=== PATIENT | female | born 1965 | race Two or more races ===

== ENCOUNTER 2020-08-31 10:34 | Outpatient (REF) | payer OTHER, SELFPAY ==
[2020-09-01 11:44] LABS: BV Int Neg Control Negative (Negative)
[2020-09-01 11:45] LABS: BV Int Pos Control Positive (Positive)
[2020-09-01 13:26] LABS: C. trachomatis RNA TMA NOT DETECTED (NOT DETECTED); N. gonorrhoeae RNA TMA NOT DETECTED (NOT DETECTED)
== END 2020-08-31 10:35 | disposition home or self-care (01) ==
LOC: HO.LAB 10:34
PROVIDERS: PCP Internal Medicine; Visit Provider Advanced Practice Midwife
DX: Z01.419 Encounter for gynecological examination (general) (routine) without abnormal findings (principal); B37.3 Candidiasis of vulva and vagina; E11.9 Type 2 diabetes mellitus without complications; Z79.899 Other long term (current) drug therapy; Z79.84 Long term (current) use of oral hypoglycemic drugs
CPT/HCPCS: 36415; 87480; 87491; 87510; 87591; 87624; 87660; 88141; 88142

== ENCOUNTER 2020-10-23 15:00 | Outpatient (REF) | payer OTHER, SELFPAY ==
[2020-10-23 17:24] LABS: MANUAL DIFF FLAG NO
[2020-10-23 17:47] LABS: Basophils Percent Auto 0.3 % (0-2); Eosinophils Absolute Auto 0.1 X10*3/uL (0.0-0.4); Eosinophils Percent Auto 1.4 % (0-4); Hematocrit 37.1 % (37-47); Hemoglobin 11.6 g/dl (12.0-16.0); Imm Gran Abs Auto 0.01 X10*3/uL (0.00-0.03); Imm Gran Pct Auto 0.2 % (0.0-0.4); Lymphocytes Absolute Auto 2.3 X10*3/uL (1.2-4.9); Lymphocytes Percent Auto 35.7 % (20-40); Mean Corpuscular HGB Conc 31.3 g/dl (31.0-35.0); Mean Corpuscular Hemoglobin 25.8 pg (27.0-33.0); Mean Corpuscular Volume 82.4 fL (80-98); Mean Platelet Volume 10.4 fL (9.4-12.3); Monocytes Absolute Auto 0.4 X10*3/uL (0.1-1.2); Monocytes Percent Auto 5.5 % (2-11); Neutrophils Absolute Auto 3.7 X10*3/uL (2.0-8.3); Neutrophils Percent Auto 56.9 % (45-73); Platelet Count 287 X10*3/uL (160-400); Red Cell Distribution Width 13.7 % (11.0-16.0); White Blood Count 6.4 X10*3/uL (4.8-10.8)
[2020-10-23 18:19] LABS: Alanine Aminotransferase 11 U/L (0-31); Albumin Level 4.1 g/dL (3.5-5.0); Alkaline Phosphatase 90 U/L (39-117); Anion Gap 15 (12-20); Aspartate Amino Transferase 13 U/L (5-31); Bilirubin Total 0.4 mg/dL (0.0-1.0); Blood Urea Nitrogen 11 mg/dL (9-16); Calcium 9.2 mg/dL (8.4-10.2); Carbon Dioxide 27 mmol/L (22-29); Chloride 104 mmol/L (96-108); Cholesterol 260 mg/dL; Estimated Glomerular Filt Rate > 60; Glucose Fasting 237 mg/dL (60-99); HDL Cholesterol 63 mg/dL; LDL Cholesterol Calculated 158 mg/dl; Potassium 4.5 mmol/L (3.3-5.1); Sodium 141 mmol/L (135-145); Triglycerides 198 mg/dL
[2020-10-24 09:18] LABS: CT PCR NOT DETECTED (Not Detect.); NG PCR NOT DETECTED (Not Detect.)
== END 2020-10-23 15:01 | disposition home or self-care (01) ==
LOC: HO.LAB 15:00
PROVIDERS: PCP Internal Medicine; Visit Provider Advanced Practice Midwife
DX: Z01.419 Encounter for gynecological examination (general) (routine) without abnormal findings (principal); N95.0 Postmenopausal bleeding; E11.9 Type 2 diabetes mellitus without complications; I10 Essential (primary) hypertension; E78.2 Mixed hyperlipidemia; D50.9 Iron deficiency anemia, unspecified; Z88.4 Allergy status to anesthetic agent; Z88.5 Allergy status to narcotic agent; Z90.49 Acquired absence of other specified parts of digestive tract; Z79.84 Long term (current) use of oral hypoglycemic drugs; Z79.899 Other long term (current) drug therapy
CPT/HCPCS: 36415; 58100; 80053; 80061; 85025; 87491; 87591; 88305; 99212

== ENCOUNTER 2020-10-31 11:14 | Outpatient (REF) | payer OTHER, SELFPAY ==
--- NOTE | ~2020-10-31 | US_ITS ---
EXAMINATION: PELVIC ULTRASOUND CLINICAL INFORMATION: Postmenopausal bleeding COMPARISON: None TECHNIQUE: Transabdominal and transvaginal pelvic ultrasound was performed. Transvaginal exam was performed for better visualization of the uterus and ovaries. FINDINGS: The uterus is anteverted and measures 9.2 x 5.1 x 7.1 cm in dimension. Uterine echotexture is a heterogeneous. There are 5 focal uterine lesions suggestive of fibroids measuring 1 x 0.8 x 0.9 cm in the anterior fundus, 1.7 x 1.6 x 1.6 cm in the right cornual region, 1.8 x 1.3 x 1.4 cm in the high posterior uterine body, 1.3 x 1 x 1 cm in the left uterine body and 1.1 x 0.9 x 1 cm in the right uterine fundus. The endometrium is slightly thickened for a postmenopausal patient measuring 0.6 cm. There are nabothian cysts in the cervix. The right ovary is normal-appearing and measures 2.3 x 1.6 x 1.5 cm. The left ovary is not seen. There is no fluid in the pelvis. US/US pelvic complete IMPRESSION: Fibroid uterus. Slightly thickened endometrium measuring 6 mm. Normal-appearing right ovary. Left ovary not seen.
--- NOTE | ~2020-10-31 | US_ITS ---
EXAMINATION: PELVIC ULTRASOUND CLINICAL INFORMATION: Postmenopausal bleeding COMPARISON: None TECHNIQUE: Transabdominal and transvaginal pelvic ultrasound was performed. Transvaginal exam was performed for better visualization of the uterus and ovaries. FINDINGS: The uterus is anteverted and measures 9.2 x 5.1 x 7.1 cm in dimension. Uterine echotexture is a heterogeneous. There are 5 focal uterine lesions suggestive of fibroids measuring 1 x 0.8 x 0.9 cm in the anterior fundus, 1.7 x 1.6 x 1.6 cm in the right cornual region, 1.8 x 1.3 x 1.4 cm in the high posterior uterine body, 1.3 x 1 x 1 cm in the left uterine body and 1.1 x 0.9 x 1 cm in the right uterine fundus. The endometrium is slightly thickened for a postmenopausal patient measuring 0.6 cm. There are nabothian cysts in the cervix. The right ovary is normal-appearing and measures 2.3 x 1.6 x 1.5 cm. The left ovary is not seen. There is no fluid in the pelvis. US/US transvaginal IMPRESSION: Fibroid uterus. Slightly thickened endometrium measuring 6 mm. Normal-appearing right ovary. Left ovary not seen.
== END 2020-10-31 11:15 | disposition home or self-care (01) ==
LOC: HO.US 11:14
PROVIDERS: Visit Provider Advanced Practice Midwife
DX: N95.0 Postmenopausal bleeding (principal)
CPT/HCPCS: 76830; 76856

== ENCOUNTER → 2020-11-14 11:48 | Outpatient (BNVA) | payer OTHER, SELFPAY | PROVIDERS: PCP Internal Medicine; Visit Provider Advanced Practice Midwife ==

== ENCOUNTER → 2020-12-11 13:24 | Outpatient (BNVA) | payer OTHER, SELFPAY | PROVIDERS: PCP Internal Medicine; Visit Provider Obstetrics & Gynecology | DX: N95.0 Postmenopausal bleeding (principal) | CPT/HCPCS: 99212 ==

== ENCOUNTER 2020-12-27 08:17 | Day surgery (SDC) | payer OTHER, SELFPAY ==
--- NOTE | 2020-12-26 09:05 | HO.ANESPROP2 ---
Documented by User: Sophia Sullivan 12/26/20 09:06 HPI - Anesthesia Eval Consult details Narrative: 55yo F for D&C Hysteroscopy, Poss Myosure xarelto for h/o PE PMFSH Active Problems Active Problems: All Active Problems (Updated 12/04/20 @ 08:45 by Vicenta Shah MD) Lumbar pain (Acute) Pre-op examination (Acute) Postmenopausal bleeding (Acute) Well woman exam with routine gynecological exam (Acute) Yeast infection involving the vagina and surrounding area (Acute) Iron deficiency anemia (Acute) Mixed hyperlipidemia (Acute) Essential hypertension (Acute) Diabetes mellitus (Acute) BPV (benign positional vertigo) (Acute) Past Medical History Medical History Diabetes mellitus Essential hypertension History of pulmonary embolism Iron deficiency anemia Lumbar pain Mixed hyperlipidemia Pre-op examination Family History Family History Father Hypertension Mother Hypertension CVD (cardiovascular disease) Diabetes Maternal Aunt Lung cancer Surgical History Surgical History History of laparoscopic cholecystectomy History of phacoemulsification of cataract with intraocular lens implantation History of tubal ligation Hx of eye surgery Social History Social History Alcohol intake: never Smoking Status: Never smoker Are you DNR?: No Advance Directives: No Advance Directives Information Provided: Yes Gender identity: female Meds Allergies Allergy/AdvReac Type Severity Reaction Status Date / Time acetaminophen [Percocet] Allergy Intermediate tachycardia Verified 12/27/20 08:30 oxycodone [Percocet] Allergy Intermediate tachycardia Verified 12/27/20 08:30 Home Medications Medication Instructions Recorded Confirmed Last Taken Type ferrous sulfate 324 mg (65 mg 324 mg PO DAILY 05/24/20 12/20/20 Unknown History iron) tablet,delayed release gabapentin 400 mg capsule 400 mg PO TID 05/24/20 12/20/20 Unknown History ketorolac 0.5 % eye drops 0 drp OPHTHALMIC (EYE) 05/24/20 12/04/20 Unknown History lisinopril 20 1 tab PO DAILY 05/24/20 12/20/20 Unknown History mg-hydrochlorothiazide 25 mg tablet metformin 1,000 mg tablet 1,000 mg PO BID 05/24/20 12/20/20 Unknown History Exam Exam Date and Time: December 26, [id number] Pertinent Lab Results Pertinent Lab Results: Laboratory Tests 10/23/20 10/23/20 17:00 17:00 WBC 6.4 Hgb 11.6 L Hct 37.1 Plt Count 287 Sodium 141 Potassium 4.5 Chloride 104 Carbon Dioxide 27 BUN 11 Creatinine 0.70 Assessment and Plan Assessment Anesthesia Assessment: Chart Reviewed Documented by User: Andree Kim 12/27/20 09:04 [facility] Past Medical History Medical History Diabetes mellitus Essential hypertension History of pulmonary embolism Iron deficiency anemia Lumbar pain Mixed hyperlipidemia Pre-op examination Family History Family History Father Hypertension Mother Hypertension CVD (cardiovascular disease) Diabetes Maternal Aunt Lung cancer Surgical History Surgical History History of laparoscopic cholecystectomy History of phacoemulsification of cataract with intraocular lens implantation History of tubal ligation Hx of eye surgery Social History Social History Alcohol intake: never Smoking Status: Never smoker Are you DNR?: No Advance Directives: No Advance Directives Information Provided: Yes Gender identity: female Meds Allergies Allergy/AdvReac Type Severity Reaction Status Date / Time acetaminophen [Percocet] Allergy Intermediate tachycardia Verified 12/27/20 08:30 oxycodone [Percocet] Allergy Intermediate tachycardia Verified 12/27/20 08:30 Home Medications Medication Instructions Recorded Confirmed Last Taken Type ferrous sulfate 324 mg (65 mg 324 mg PO DAILY 05/24/20 12/20/20 Unknown History iron) tablet,delayed release gabapentin 400 mg capsule 400 mg PO TID 05/24/20 12/20/20 Unknown History ketorolac 0.5 % eye drops 0 drp OPHTHALMIC (EYE) 05/24/20 12/04/20 Unknown History lisinopril 20 1 tab PO DAILY 05/24/20 12/20/20 Unknown History mg-hydrochlorothiazide 25 mg tablet metformin 1,000 mg tablet 1,000 mg PO BID 05/24/20 12/20/20 Unknown History Exam Airway Mallampati Class: II TM Dist: >3cm Neck ROM: Full Assessment and Plan Assessment Anesthesia Assessment: Anesthesia Plan Discussed Final Anesthetic Review NPO: Yes ASA Class: II Final Preanesthetic Review: No Changes in Pt Med Stat, Meds/Allgs Chart Reviewed, Consent Obtained/Reviewed and Anes Risks/Benef Reviewed Patient Risk: Low Procedure Risk: Low Assessment/Block/Sedation in SS: Assess/Block/Sedation-SS Anesthetic Plan Anesthetic Plan: MAC: Disposition: Standard PACU
[2020-12-27 08:31] VITALS: BP 147/70; PULSE 68; RESP 18; TEMP 36.2; O2SAT 100; BMI 36.6
[2020-12-27 08:59] LABS: Glucose, Whole Blood 279 mg/dL (60-115)
--- NOTE | 2020-12-27 10:29 | MHC.SHP ---
Pre-Procedural Eval Section A The patient is an INPATIENT: No Changes since office visit: No Cold of Flu in the past 2 weeks, No New Medical Problems, No Changes in Medication and No Patient answered all questions The History & Physical has been completed within 30 days and I have reviewed it.: Yes Section B Chief Complaint: PMB Allergies: Allergies Allergy/AdvReac Type Severity Reaction Status Date / Time acetaminophen [Percocet] Allergy Intermediate tachycardia Verified 12/27/20 08:30 oxycodone [Percocet] Allergy Intermediate tachycardia Verified 12/27/20 08:30 Plan I have reviewed the history and physical and performed a pertinent physical examination on my patient. No changes have occurred unless specified.
--- NOTE | 2020-12-27 10:31 | W.PM.OPN ---
Operative Note Operative Note Date of Service: 12/27/20 Narrative: Pre-Op Diagnosis: Postmenopausal bleeding Post-Op Diagnosis: Postmenopausal bleeding Procedures performed: hysteroscopy dilation and curettage Station [employer] Repairer: none Specimens: endometrial curettings Complications: none Disposition: PACU Ms. Dougherty is a 55 year old with persistent postmenopausal bleedng. She presents today for hysteroscopy d&c for further evaluation of persistent bleeding after benign EMB. Surgical Risks: The patient was informed of the risks and benefits of a hysteroscopy with dilation and curettage. Risks included but were not limited to bleeding, infection, injury to the vulva, vagina, or cervix, and uterine perforation with possible need for further surgery. The patient expressed understanding of the risks involved, all questions were answered, and the patient consented to the procedure. The patient was taken to the operating room where a time out was confirmed to confirm correct patient and correct procedure. Adequate MAC was established. The patient was then positioned on the operating table in the dorsal lithotomy position with her legs supported using stirrups. All pressure points were padded and a warm blanket was placed to maintain control of core body temperature. The patient was then prepped and draped in the usual sterile fashion. A straight catheter was inserted into the bladder and the bladder drained. A bivalve speculum was then inserted into the vagina. The anterior lip of the cervix was visualized and grasped using a single tooth tenaculum. A total of 12mL 0.5% bupivicaine was injected, 6mL each at 4 and 8 o'clock at the cervico-vaginal junction after first aspirating to confirm location not in a blood vessel. The cervix was adequately dilated using Steinberg dilators for the introduction of the hysteroscope. The hysteroscope was introduced under direct visualization using normal saline solution as the distending media. The hysteroscope was advanced to the fundus and the entire uterine cavity was inspected. No abnormalities were noted. The hysteroscope was then removed and a sharp curetting was performed starting at the 12 o?clock position and rotating a total of 360 degrees in order to cover all surfaces. Endometrial tissue was obtained and was sent to pathology. Following the curetting, good hemostasis was noted. The single-tooth tenaculum was removed from the anterior lip of the cervix and hemostasis was also noted at the tenaculum puncture sites. The speculum was then removed from the vagina. At the end of the procedure, all needle, sponge, and instrument counts were noted to be correct x2. The patient was transferred to the recovery room in stable condition.
[2020-12-27 11:10] VITALS: BP 144/81; PULSE 71; RESP 16; TEMP 36.5; O2SAT 97
[2020-12-27 11:25] VITALS: BP 156/76; PULSE 57; RESP 16; TEMP 36.5; O2SAT 100
[2020-12-27 11:40] VITALS: BP 144/69; PULSE 57; RESP 16; TEMP 36.5; O2SAT 98
[2020-12-27 12:10] VITALS: BP 135/64; PULSE 56; RESP 17; O2SAT 100
== END 2020-12-27 12:51 | disposition home or self-care (01) ==
LOC: HO.SSS 08:17
PROVIDERS: PCP Internal Medicine; Visit Provider Obstetrics & Gynecology
PROC: 0UDB8ZZ Extraction of Endometrium, Via Natural or Artificial Opening Endoscopic (ICD-10-PCS; CPT 58558; principal; 2020-12-27 10:10)
DX: N95.0 Postmenopausal bleeding (principal); Z98.51 Tubal ligation status; I10 Essential (primary) hypertension; I26.99 Other pulmonary embolism without acute cor pulmonale; D50.9 Iron deficiency anemia, unspecified; E78.5 Hyperlipidemia, unspecified; Z79.84 Long term (current) use of oral hypoglycemic drugs; E11.9 Type 2 diabetes mellitus without complications; Z79.899 Other long term (current) drug therapy; Z88.8 Allergy status to other drugs, medicaments and biological substances; Z90.49 Acquired absence of other specified parts of digestive tract
CPT/HCPCS: 58558; 82947; 88305; J1885; J2405; J3010

== ENCOUNTER → 2021-01-14 08:13 | Outpatient (BNVA) | payer OTHER, SELFPAY | PROVIDERS: Visit Provider Obstetrics & Gynecology | DX: Z09 Encounter for follow-up examination after completed treatment for conditions other than malignant neoplasm (principal) | CPT/HCPCS: 99212 ==

== ENCOUNTER 2021-02-19 15:10 | Outpatient (REF) | payer OTHER, SELFPAY ==
--- NOTE | ~2021-02-19 | MM_ITS ---
EXAMINATION: MM SCREENING DIGITAL BREAST TOMOSYNTHESIS, BILATERAL CLINICAL INFORMATION: Screening. Asymptomatic. The lifetime risk of breast cancer based on the Tyrer-Cuzick Model is 6%. COMPARISON: Outside mammography: 03/29/2019, 03/23/2018, 03/17/2017 TECHNIQUE: Digital breast tomosynthesis is performed in both the craniocaudal and mediolateral oblique views along with computer-aided detection (CAD). Synthesized 2D images are generated from the tomosynthesis. Additional right MLO view is provided. FINDINGS: There are scattered areas of fibroglandular density (ACR BI-RADS breast composition Category b). Parenchymal pattern is similar to prior outside exams. Scattered minor parenchymal asymmetries are stable. There is no developing density or interval mass or architectural abnormality. Intramammary node right breast posterior upper outer quadrant is stable. There are no abnormal calcifications. The axilla and skin contours are unremarkable. MM/MM tomosynthesis screening BI IMPRESSION: No mammographic evidence of malignancy. ASSESSMENT: BI-RADS 2: Benign RECOMMENDATION: Routine annual mammography screening. This patient's information was entered into a reminder system with a target due date for their next mammogram.
== END 2021-02-19 15:11 | disposition home or self-care (01) ==
LOC: HO.MAMMO 15:10
PROVIDERS: Visit Provider Internal Medicine
DX: Z12.31 Encounter for screening mammogram for malignant neoplasm of breast (principal)
CPT/HCPCS: 77063; 77067

== ENCOUNTER 2021-03-25 13:19 | Outpatient (REF) | payer OTHER, SELFPAY | END 2021-03-25 13:20 | disposition home or self-care (01) | LOC: HO.LAB 13:19 | PROVIDERS: PCP Internal Medicine; Visit Provider Obstetrics & Gynecology | DX: N95.0 Postmenopausal bleeding (principal); R31.29 Other microscopic hematuria | CPT/HCPCS: 58100; 87086; 88305; 99212 ==

== ENCOUNTER → 2021-04-18 09:39 | Outpatient (BNVA) | payer OTHER, SELFPAY | PROVIDERS: PCP Internal Medicine; Visit Provider Obstetrics & Gynecology | DX: R31.29 Other microscopic hematuria (principal); N95.0 Postmenopausal bleeding | CPT/HCPCS: 99212 ==